=== PATIENT | female | born 1955 ===

== ENCOUNTER 2024-09-18 14:59 | Outpatient (CLI) | payer MEDICARE, OTHER | END 2024-09-18 15:00 | disposition home or self-care (01) | LOC: SCSMRI 14:59 | PROVIDERS: ATTEND Orthopaedic Surgery | DX: M23.92 Unspecified internal derangement of left knee (principal); S83.242A Other tear of medial meniscus, current injury, left knee, initial encounter; M79.81 Nontraumatic hematoma of soft tissue | CPT/HCPCS: 70250 ==